=== PATIENT | male | born 1980 | race African-American/Black ===

== ENCOUNTER 2017-10-30 15:54 | Inpatient (IN) | payer OTHER ==
[2017-10-30 18:51] VITALS: BMI 19.0
--- NOTE | 2017-10-30 20:18 | HP ---
CIWA Score - CIWA Score Nausea/Vomitin Muscle Tremors: 4-Moderate,w/Arms Extend Anxiety: 4-Mod. Anxious/Guarded Agitation: 4-Moderately Restless Paroxysmal Sweats: 3 Orientation: 0-Oriented Tacttile Disturbances: 0-None Auditory Disturbances: 0-None Visual Disturbances: 0-None Headache: 0-None Present CIWA-Ar Total Score: 18 Admission ROS BHS - HPI Chief Complaint: SEEKING DETOX FOR ALCOHOLISM AND WITHDRAWAL SX'S Allergies/Adverse Reactions: Allergies Allergy/AdvReac Type Severity Reaction Status Date / Time No Known Allergies Allergy Verified 10/30/17 19:49 History of Present Illness: 36 Y.O. MALE WITH LONG HX/O ALCOHOLISM KNOWN TO THIS PROGRAM RETURNS FOR DETOX FOR ALCOHOLISM. REFERRED BY HIS OUT PATIENT PROGRAM. REPORTS LAST DETOX AT [facility] 07/2017. REPORTS LONGEST CLEAN TIME 6 MONTHS. PMHX: ALCOHOL RELATED SEIZURES,; MENTAL HEALTH ANXIETY, INSOMNIA. DENIES PAST AND PRESENT SI/HI, A/V HALLUCINATIONS. PENDING DWI LEGALS Exam Limitations: No Limitations - Ebola screening Have you traveled outside of the country in the last 21 days: No Have you had contact with anyone from an Ebola affected area: No Have you been sick,other than usual withdrawal symptoms: No Do you have a fever: No - Review of Systems Constitutional: Chills, Loss of Appetite, Night Sweats, Changes in sleep, Unintentional Wgt. Loss EENT: reports: No Symptoms Reported Respiratory: reports: No Symptoms reported Cardiac: reports: No Symptoms Reported GI: reports: Poor Appetite, Poor Fluid Intake, Abdominal cramping : reports: No Symptoms Reported Musculoskeletal: reports: No Symptoms Reported Integumentary: reports: Other (R CHEEK ABRASION S/P FALL) Neuro: reports: Seizure (R/T ETOH WITHDRAWAL) Endocrine: reports: No Symptoms Reported Hematology: reports: No Symptoms Reported Psychiatric: reports: Anxious Other Systems: Reviewed and Negative Patient History - Patient Medical History Hx Anemia: No Hx Asthma: No Hx Chronic Obstructive Pulmonary Disease (COPD): No Hx Cancer: No Hx Cardiac Disorders: No Hx Congestive Heart Failure: No Hx Hypertension: No Hx Hypercholesterolemia: No Hx Pacemaker: No HX Cerebrovascular Accident: No Hx Seizures: Yes (R/T ALCOHOL 04/2017) Hx Dementia: No Hx Diabetes: No Hx Gastrointestinal Disorders: No Hx Liver Disease: No Hx Genitourinary Disorders: No Hx Sexually Transmitted Disorders: No Hx Renal Disease (ESRD): No Hx Thyroid Disease: No Hx Human Immunodeficiency Virus (HIV): No Hx Hepatitis C: No Hx Depression: No (anxiety) Hx Suicide Attempt: No Hx Bipolar Disorder: No Hx Schizophrenia: No Other Medical History: DENIES - Patient Surgical History Past Surgical History: No Hx Neurologic Surgery: No Hx Cataract Extraction: No Hx Cardiac Surgery: No Hx Lung Surgery: No Hx Breast Surgery: No Hx Breast Biopsy: No Hx Abdominal Surgery: No Hx Appendectomy: No Hx Cholecystectomy: No Hx Genitourinary Surgery: No Hx Section: No Hx Orthopedic Surgery: No Other Surgical History: left mandible in 2012 Anesthesia Reaction: No - PPD History Previous Implant?: Yes Documented Results: Positive w/o proof Implanted On Prior R Admission?: No PPD to be Administered?: No - Smoking Cessation Smoking history: Current every day smoker Have you smoked in the past 12 months: Yes Aproximately how many cigarettes per day: 10 Cigars Per Day: 0 Hx Chewing Tobacco Use: No Initiated information on smoking cessation: Yes 'Breaking Loose' booklet given: 10/30/17 - Substance & Tx. History Hx Alcohol Use: Yes Hx Substance Use: Yes Substance Use Type: Alcohol, Cocaine, Marijuana Hx Substance Use Treatment: Yes ([facility]) - Substances Abused Alcohol Route: Oral Frequency: Daily Amount used: 1 PINT VODKA Age of first use: 17 Date of Last Use: 10/30/17 Cocaine Route: Smoking Frequency: 1-2 times per week Amount used: $40 Age of first use: 34 Date of Last Use: 10/29/17 Marijuana/Hashish Route: Smoking Frequency: Daily Amount used: 3 BLUNTS Age of first use: 17 Family Disease History - Family Disease History Family Disease History: Other: Father (RECOVERED ALCOHOLIC) Admission Physical Exam BHS - Vital Signs Vital Signs: Vital Signs - 24 hr 10/30/17 18:50 Temperature 98.6 F Pulse Rate 88 Respiratory 18 Rate Blood Pressure 122/82 - Physical General Appearance: Yes: Appropriately Dressed, Mild Distress, Thin, Tremorous, Other (RESTLESS) HEENTM: Yes: EOMI, Normocephalic, Normal Voice, TARUN, Pharynx Normal Respiratory: Yes: Chest Non-Tender, Lungs Clear, Normal Breath Sounds, No Respiratory Distress, No Accessory Muscle Use Neck: Yes: No masses,lesions,Nodules, Supple, Trachea in good position Breast: Yes: Breast Exam Deferred Cardiology: Yes: Regular Rhythm, S1, S2, Tachycardia Abdominal: Yes: Non Tender, Flat, Soft, Increased Bowel Sounds Genitourinary: Yes: Within Normal Limits Back: Yes: Normal Inspection Musculoskeletal: Yes: full range of Motion, Gait Steady Extremities: Yes: Normal Capillary Refill, Normal Range of Motion, Non-Tender, Tremors Neurological: Yes: Fully Oriented, Alert, Motor Strength 5/5 Integumentary: Yes: Normal Color, Warm, Other (HEALING ABRASION TO RIGHT SIDE OF FACE) Lymphatic: Yes: Within Normal Limits - Diagnostic (1) Alcohol dependence with uncomplicated withdrawal Current Visit: Yes Status: Chronic (2) Cocaine abuse, uncomplicated Current Visit: Yes Status: Chronic (3) Drug-induced mood disorder Current Visit: Yes Status: Suspected (4) Seizure disorder Current Visit: Yes Status: Suspected (5) Cannabis dependence Current Visit: Yes Status: Chronic (6) Nicotine dependence Current Visit: Yes Status: Chronic Qualifiers: Nicotine product type: cigarettes Substance use status: uncomplicated Qualified Code(s): F17.210 - Nicotine dependence, cigarettes, uncomplicated Cleared for Admission [facility] - Detox or Rehab [facility] Level of Care: Medically Managed Detox Regimen/Protocol: Rupaliium Hosseined for Rehab Admission: No [facility] Breath Alcohol Content Breath Alcohol Content: 0.144 Urine Drug Screen - Results Drug Screen Negative: No Urine Drug Screen Results: THC-Marijuana, VALERIO-Cocaine
[2017-10-30] MEDS ORDERED: MENTHOL/PHENOL 1 EACH UD MM PRN (20:40)
[2017-10-30] MEDS ORDERED: P-EPHED 60MG/TRIPROLIDI 2.5MG TABLET PO PRN (20:40)
[2017-10-30] MEDS ORDERED: IBUPROFEN 400 MG TABLET (FP) PO PRN (20:40)
[2017-10-30] MEDS ORDERED: MAGNESIUM CITRATE 300 ML BOTTLE PO PRN (20:40)
[2017-10-30] MEDS ORDERED: NICOTINE POLACRILEX 2 MG GUM BC PRN (20:40)
[2017-10-30] MEDS ORDERED: LOPERAMIDE HCL 2 MG CAPSULE PO PRN (20:40)
[2017-10-30] MEDS ORDERED: chlordiazePOXIDE HCL 25 MG CAPSULE PO PRN (20:40)
[2017-10-30] MEDS ORDERED: guaiFENesin/D-METHORPHAN HB 10 ML UNIT-DOSE CUPS PO PRN (20:40)
[2017-10-30] MEDS ORDERED: ACETAMINOPHEN 325 MG TABLET (FP) PO PRN (20:40)
[2017-10-30] MEDS ORDERED: MAGNESIUM HYDROX 2400MG/30ML ORAL SUSPENSION 30 ML CUP PO PRN (20:40)
[2017-10-30] MEDS ORDERED: MELATONIN 5 MG TABLETS PO PRN (22:00)
[2017-10-30] MEDS: THIAMINE HCL 100 MG TABLET (FP) PO SCH (22:38)
[2017-10-30] MEDS: TOPIRAMATE 100 MG TABLET PO SCH (22:38)
[2017-10-30] MEDS: chlordiazePOXIDE HCL 25 MG CAPSULE PO SCH (22:38)
[2017-10-30] MEDS: hydrOXYzine PAMOATE 50 MG CAPSULE (FP) PO PRN (22:41)
[2017-10-30] MEDS: MAG HYDROX/AL HYDROX/SIMETH 30 ML UNIT-DOSE CUP PO PRN (22:42)
[2017-10-31] MEDS: chlordiazePOXIDE HCL 25 MG CAPSULE PO SCH ×4 (06:11→22:15)
[2017-10-31] MEDS: MAG HYDROX/AL HYDROX/SIMETH 30 ML UNIT-DOSE CUP PO PRN ×2 (06:13→17:49)
[2017-10-31] MEDS: PRENATAL VITAMINS W/ FOLIC ACID TABLET (FP) PO SCH (10:20)
[2017-10-31] MEDS: TOPIRAMATE 100 MG TABLET PO SCH ×2 (10:20→22:15)
[2017-10-31] MEDS: NICOTINE 14 MG/24 HOURS TOPICAL PATCH TD SCH (10:20)
--- NOTE | 2017-10-31 10:36 | CONSULT ---
[facility] Psychiatric Consult - Data Date of interview: 10/31/17 Admission source: [facility] Identifying data: Readmission to [facility] for this 36 y/o [place]born male seeking detox treatment on for alcohol,cocaine and cannabis dependence.Patient is single,a father of three,domiciled,unemployed and reportedly deprived of any source of income. Substance Abuse History: Confirmed by patient in this session.Details in current [facility] report : Smoking history: Current every day smoker. Have you smoked in the past 12 months: Yes. Aproximately how many cigarettes per day: 10. Cigars Per Day: 0. Hx Chewing Tobacco Use: No. Initiated information on smoking cessation: Yes. 'Breaking Loose' booklet given: 10/30/17. - Substance & Tx. History. Hx Alcohol Use: Yes. Hx Substance Use: Yes. Substance Use Type : Alcohol, Cocaine, Marijuana. Hx Substance Use Treatment: Yes ([facility]). - Substances Abused. Alcohol. Route: Oral. Frequency: Daily. Amount used : 1 PINT VODKA. Age of first use: 17. Date of Last Use: 10/30/17. Cocaine. Route: Smoking. Frequency: 1-2 times per week. Amount used: $40. Age of first use: 34. Date of Last Use: 10/29/17. Marijuana/Hashish. Route : Smoking. Frequency: Daily. Amount used: 3 BLUNTS. Age of first use: 17 Medical History: Seizure disorder (on topamax). Psychiatric History: Diagnosed with Anxiety Disorder.No reported history of psychiatric hospitalizations.Mr Meade sees a psychiatrist at the [facility] for medication management.Prescribed remeron 30 mg/hs for chronic insomnia.Patient denies history of suicide attempts. Physical/Sexual Abuse/Trauma History: Patient denies. Additional Comment: Urine Drug Screen Results: THC-Marijuana, VALERIO-Cocaine.Noted. Mental Status Exam - Mental Status Exam Alert and Oriented to: Time, Place, Person Cognitive Function: Good Patient Appearance: Well Groomed Mood: Withdrawn, Anxious Affect: Appropriate, Mood Congruent Patient Behavior: Fatigued, Appropriate, Cooperative Speech Pattern: Clear Voice Loudness: Normal Thought Process: Intact, Goal Oriented Thought Disorder: Not Present Hallucinations: Denies Suicidal Ideation: Denies Homicidal Ideation: Denies Insight/Judgement: Poor Sleep: Poorly, Difficulty falling asleep Appetite: Good Muscle strength/Tone: Normal Gait/Station: Normal Psychiatric Findings - Problem List (Novelty 1, 2,3) (1) Alcohol dependence with uncomplicated withdrawal Current Visit: Yes Status: Acute (2) Cannabis dependence Current Visit: Yes Status: Acute (3) Cocaine abuse, uncomplicated Current Visit: Yes Status: Acute (4) Nicotine dependence Current Visit: Yes Status: Acute Qualifiers: Nicotine product type: cigarettes Substance use status: uncomplicated Qualified Code(s): F17.210 - Nicotine dependence, cigarettes, uncomplicated (5) Drug-induced mood disorder Current Visit: Yes Status: Chronic (6) Insomnia Current Visit: Yes Status: Acute - Initial Treatment Plan Initial Treatment Plan: Psychoeducation.Sleep hygiene.Detoxification.Remeron 15 mg po hs.Side effects/benefits discussed with the patient.Mr Meade agrees with this careplan.Observation.
[2017-10-31 10:43] LABS: HEMATOCRIT 39.1 % (35.4-49); HEMOGLOBIN 13.2 GM/dL (11.7-16.9); MCH 33.7 pg (25.7-33.7); MCHC 33.7 g/dl (32.0-35.9); MEAN CELL VOLUME 99.9 fl (80-96); MEAN PLT VOLUME 9.5 fl (7.5-11.1); PLATELET COUNT 215 K/MM3 (134-434); RBC 3.92 M/mm3 (4.00-5.60); WHITE BLOOD COUNT 5.5 K/mm3 (4.0-10.0)
[2017-10-31 10:52] LABS: CHLORIDE 110 mmol/L (98-107); POTASSIUM 3.7 mmol/L (3.5-5.1); SODIUM 140 mmol/L (136-145)
[2017-10-31 11:12] LABS: ALBUMIN 3.6 g/dl (3.4-5.0); ALK PHOS 65 U/L (45-117); ANION GAP 8 (8-16); BILIRUBIN,TOTAL 1.2 mg/dL (0.2-1.0); BLOOD UREA NITROGEN 4 mg/dL (7-18); CALCIUM 8.8 mg/dL (8.5-10.1); CO2 22 mmol/L (21-32); CREATININE 0.7 mg/dL (0.7-1.3); GLUCOSE,RANDOM 103 mg/dL (74-106); SGOT/AST 36 U/L (15-37); SGPT/ALT 31 U/L (12-78); TOT PROT 7.1 g/dl (6.4-8.2)
--- NOTE | 2017-10-31 13:31 | PN ---
S CIWA - CIWA Score Nausea/Vomitin-No Nausea/No Vomiting Muscle Tremors: 3 Anxiety: 4-Mod. Anxious/Guarded Agitation: 2 Paroxysmal Sweats: 3 Orientation: 0-Oriented Tacttile Disturbances: 2-Mild Itch/Numbness/Burn Auditory Disturbances: 0-None Visual Disturbances: 2-Mild Sensitivity Headache: 0-None Present CIWA-Ar Total Score: 16 BHS Progress Note (SOAP) Subjective: Tremors, Sweating, Stomach Cramping, Fatigue, Interrupted Sleep. Objective: PATIENT A & O X 3. NO ACUTE DISTRESS. 10/31/17 13:29 Vital Signs Temperature 98.1 F 10/31/17 09:17 Pulse Rate 72 10/31/17 09:17 Respiratory Rate 18 10/31/17 09:17 Blood Pressure 112/76 10/31/17 09:17 O2 Sat by Pulse Oximetry (%) Laboratory Tests 10/31/17 10/31/17 10/31/17 07:40 07:40 07:40 WBC 5.5 D RBC 3.92 L Hgb 13.2 Hct 39.1 MCV 99.9 H MCH 33.7 MCHC 33.7 RDW 15.0 D Plt Count 215 MPV 9.5 Sodium 140 Potassium 3.7 Chloride 110 H Carbon Dioxide 22 D Anion Gap 8 BUN 4 L D Creatinine 0.7 D Creat Clearance w eGFR > 60 Random Glucose 103 Calcium 8.8 Total Bilirubin 1.2 H D AST 36 D ALT 31 D Alkaline Phosphatase 65 Total Protein 7.1 Albumin 3.6 RPR Titer HIV 1&2 Antibody Screen Negative HIV P24 Antigen Negative 10/31/17 07:40 WBC RBC Hgb Hct MCV MCH MCHC RDW Plt Count MPV Sodium Potassium Chloride Carbon Dioxide Anion Gap BUN Creatinine Creat Clearance w eGFR Random Glucose Calcium Total Bilirubin AST ALT Alkaline Phosphatase Total Protein Albumin RPR Titer Nonreactive HIV 1&2 Antibody Screen HIV P24 Antigen LABS NOTED. Assessment: 10/31/17 13:29 WITHDRAWAL SYMPTOMS. Plan: CONTINUE DETOX.
--- NOTE | 2017-10-31 14:39 | EKG ---
Test Reason : Blood Pressure : / mmHG Vent. Rate : 071 BPM Atrial Rate : 071 BPM P-R Int : 140 ms QRS Dur : 088 ms QT Int : 372 ms P-R-T Axes : 066 016 063 degrees QTc Int : 404 ms NORMAL SINUS RHYTHM NORMAL ECG NO PREVIOUS ECGS AVAILABLE Confirmed by MD Eddie, Harvinder ([id number]) on 10/31/2017 2:39:13 PM Referred By: Confirmed By:Harvinder Morgan MD
[2017-10-31] MEDS: THIAMINE HCL 100 MG TABLET (FP) PO SCH (22:15)
[2017-10-31] MEDS: MIRTAZAPINE 15 MG TABLET (FP) PO SCH (22:15)
[2017-10-31] MEDS: hydrOXYzine PAMOATE 50 MG CAPSULE (FP) PO PRN (22:19)
[2017-11-01] MEDS: chlordiazePOXIDE HCL 25 MG CAPSULE PO SCH ×3 (05:47→17:41)
[2017-11-01] MEDS: MAG HYDROX/AL HYDROX/SIMETH 30 ML UNIT-DOSE CUP PO PRN ×2 (05:48→17:42)
[2017-11-01] MEDS: PRENATAL VITAMINS W/ FOLIC ACID TABLET (FP) PO SCH (10:13)
[2017-11-01] MEDS: NICOTINE 14 MG/24 HOURS TOPICAL PATCH TD SCH (10:14)
[2017-11-01] MEDS: TOPIRAMATE 100 MG TABLET PO SCH ×2 (11:05→22:15)
--- NOTE | 2017-11-01 11:41 | PN ---
S CIWA - CIWA Score Nausea/Vomitin-No Nausea/No Vomiting Muscle Tremors: 4-Moderate,w/Arms Extend Anxiety: 4-Mod. Anxious/Guarded Agitation: 4-Moderately Restless Paroxysmal Sweats: 1-Minimal Palms Moist Orientation: 0-Oriented Tacttile Disturbances: 0-None Auditory Disturbances: 0-None Visual Disturbances: 0-None Headache: 0-None Present CIWA-Ar Total Score: 13 BHS Progress Note (SOAP) Subjective: ANXIETY,SWEATS/CHILLS, STOMACH CRAMPS/ACHE, INTERMITTENT SLEEP. Objective: 11/01/17 11:39 Vital Signs Temperature 98.7 F 11/01/17 09:22 Pulse Rate 106 H 11/01/17 09:22 Respiratory Rate 20 11/01/17 09:22 Blood Pressure 119/87 11/01/17 09:22 O2 Sat by Pulse Oximetry (%) Laboratory Tests 10/31/17 10/31/17 10/31/17 07:40 07:40 07:40 WBC 5.5 D RBC 3.92 L Hgb 13.2 Hct 39.1 MCV 99.9 H MCH 33.7 MCHC 33.7 RDW 15.0 D Plt Count 215 MPV 9.5 Sodium 140 Potassium 3.7 Chloride 110 H Carbon Dioxide 22 D Anion Gap 8 BUN 4 L D Creatinine 0.7 D Creat Clearance w eGFR > 60 Random Glucose 103 Calcium 8.8 Total Bilirubin 1.2 H D AST 36 D ALT 31 D Alkaline Phosphatase 65 Total Protein 7.1 Albumin 3.6 RPR Titer HIV 1&2 Antibody Screen Negative HIV P24 Antigen Negative 10/31/17 07:40 WBC RBC Hgb Hct MCV MCH MCHC RDW Plt Count MPV Sodium Potassium Chloride Carbon Dioxide Anion Gap BUN Creatinine Creat Clearance w eGFR Random Glucose Calcium Total Bilirubin AST ALT Alkaline Phosphatase Total Protein Albumin RPR Titer Nonreactive HIV 1&2 Antibody Screen HIV P24 Antigen Assessment: 11/01/17 11:40 WITHDRAWAL SX Plan: CONTINUE DETOX INCREASE PO FLUIDS.
[2017-11-01] MEDS: chlordiazePOXIDE 5 MG CAPSULE PO SCH (22:14)
[2017-11-01] MEDS: MIRTAZAPINE 15 MG TABLET (FP) PO SCH (22:15)
[2017-11-01] MEDS: THIAMINE HCL 100 MG TABLET (FP) PO SCH (22:15)
[2017-11-02] MEDS: chlordiazePOXIDE 5 MG CAPSULE PO SCH ×3 (07:10→17:24)
[2017-11-02] MEDS: NICOTINE 14 MG/24 HOURS TOPICAL PATCH TD SCH (10:23)
[2017-11-02] MEDS: PRENATAL VITAMINS W/ FOLIC ACID TABLET (FP) PO SCH (10:23)
[2017-11-02] MEDS: TOPIRAMATE 100 MG TABLET PO SCH ×2 (12:06→22:20)
--- NOTE | 2017-11-02 15:12 | PN ---
BHS Progress Note (SOAP) Subjective: sleep disturbance shakes sweats Objective: 11/02/17 15:10 A & ox 3 Vital Signs Temperature 98.1 F 11/02/17 13:16 Pulse Rate 90 11/02/17 13:16 Respiratory Rate 20 11/02/17 13:16 Blood Pressure 105/77 11/02/17 13:16 O2 Sat by Pulse Oximetry (%) Assessment: 11/02/17 15:11 withdrawal sx Plan: continue detox For d/c tomorrow
[2017-11-02] MEDS: chlordiazePOXIDE HCL 10 MG CAPSULE PO SCH (22:18)
[2017-11-02] MEDS: THIAMINE HCL 100 MG TABLET (FP) PO SCH (22:19)
[2017-11-02] MEDS: MIRTAZAPINE 15 MG TABLET (FP) PO SCH (22:19)
[2017-11-02] MEDS: hydrOXYzine PAMOATE 50 MG CAPSULE (FP) PO PRN (22:22)
[2017-11-03] MEDS: chlordiazePOXIDE HCL 10 MG CAPSULE PO SCH ×2 (05:50→10:10)
[2017-11-03 06:18] VITALS: BP 101/51; PULSE 71; TEMP 96.8
[2017-11-03] MEDS: TOPIRAMATE 100 MG TABLET PO SCH (09:54)
[2017-11-03] MEDS: NICOTINE 14 MG/24 HOURS TOPICAL PATCH TD SCH (09:54)
[2017-11-03] MEDS: PRENATAL VITAMINS W/ FOLIC ACID TABLET (FP) PO SCH (09:54)
--- NOTE | 2017-11-03 18:46 | DS ---
[facility] Detox Discharge Summary Admission Date: 10/30/17 Discharge Date: 11/03/17 - History Present History: Alcohol Dependence, Cannabis Dependence, Cocaine Dependence Additional Comments: PATIENT GOING TO [facility] ([place], [place] FOR AFTERCARE. PATIENT WAS DISCHARGED FROM DETOX UNIT IN STABLE MEDICAL CONDITION. Pertinent Past History: Anxiety, Insomnia, Nicotine Dependence, History of Seizure. - Physical Exam Results Vital Signs: Vital Signs Temperature 96.8 F L 11/03/17 06:17 Pulse Rate 71 11/03/17 06:17 Respiratory Rate 18 11/03/17 06:17 Blood Pressure 101/51 11/03/17 06:17 O2 Sat by Pulse Oximetry (%) Pertinent Admission Physical Exam Findings: WITHDRAWAL SYMPTOMS. Laboratory Tests 10/31/17 10/31/17 10/31/17 07:40 07:40 07:40 WBC 5.5 D RBC 3.92 L Hgb 13.2 Hct 39.1 MCV 99.9 H MCH 33.7 MCHC 33.7 RDW 15.0 D Plt Count 215 MPV 9.5 Sodium 140 Potassium 3.7 Chloride 110 H Carbon Dioxide 22 D Anion Gap 8 BUN 4 L D Creatinine 0.7 D Creat Clearance w eGFR > 60 Random Glucose 103 Calcium 8.8 Total Bilirubin 1.2 H D AST 36 D ALT 31 D Alkaline Phosphatase 65 Total Protein 7.1 Albumin 3.6 RPR Titer HIV 1&2 Antibody Screen Negative HIV P24 Antigen Negative 10/31/17 07:40 WBC RBC Hgb Hct MCV MCH MCHC RDW Plt Count MPV Sodium Potassium Chloride Carbon Dioxide Anion Gap BUN Creatinine Creat Clearance w eGFR Random Glucose Calcium Total Bilirubin AST ALT Alkaline Phosphatase Total Protein Albumin RPR Titer Nonreactive HIV 1&2 Antibody Screen HIV P24 Antigen LABS NOTED. - Treatment Hospital Course: Detox Protocol Followed, Detoxed Safely, Responded well, Discharged Condition Good, Rehab Referral Accepted Patient has Accepted a Rehab Referral to: [facility] ([place] - Medication Discharge Medications: Ambulatory Orders Mirtazapine [Remeron -] 15 mg PO HS 10/30/17 Topiramate [Topamax] 100 mg PO BID 10/30/17 - Diagnosis (1) Alcohol dependence with uncomplicated withdrawal Status: Acute (2) Cannabis dependence Status: Acute (3) Cocaine abuse, uncomplicated Status: Acute (4) Nicotine dependence Status: Acute Qualifiers: Nicotine product type: cigarettes Substance use status: in withdrawal Qualified Code(s): F17.213 - Nicotine dependence, cigarettes, with withdrawal (5) Drug-induced mood disorder Status: Chronic (6) Seizure disorder Status: Suspected (7) Insomnia Status: Acute Qualifiers: Insomnia type: unspecified Qualified Code(s): G47.00 - Insomnia, unspecified - AMA Did Patient Leave Against Medical Advice: No
--- NOTE | 2017-11-03 18:51 | PN ---
S Progress Note (SOAP) Subjective: Patient denies current Detox symptoms and reports that he feels well overall. Objective: PATIENT A & O X 3, OBSERVED AMBULATING ON UNIT. NO ACUTE DISTRESS. 11/03/17 18:49 Vital Signs Temperature 96.8 F L 11/03/17 06:17 Pulse Rate 71 11/03/17 06:17 Respiratory Rate 18 11/03/17 06:17 Blood Pressure 101/51 11/03/17 06:17 O2 Sat by Pulse Oximetry (%) Laboratory Tests 10/31/17 10/31/17 10/31/17 07:40 07:40 07:40 WBC 5.5 D RBC 3.92 L Hgb 13.2 Hct 39.1 MCV 99.9 H MCH 33.7 MCHC 33.7 RDW 15.0 D Plt Count 215 MPV 9.5 Sodium 140 Potassium 3.7 Chloride 110 H Carbon Dioxide 22 D Anion Gap 8 BUN 4 L D Creatinine 0.7 D Creat Clearance w eGFR > 60 Random Glucose 103 Calcium 8.8 Total Bilirubin 1.2 H D AST 36 D ALT 31 D Alkaline Phosphatase 65 Total Protein 7.1 Albumin 3.6 RPR Titer HIV 1&2 Antibody Screen Negative HIV P24 Antigen Negative 10/31/17 07:40 WBC RBC Hgb Hct MCV MCH MCHC RDW Plt Count MPV Sodium Potassium Chloride Carbon Dioxide Anion Gap BUN Creatinine Creat Clearance w eGFR Random Glucose Calcium Total Bilirubin AST ALT Alkaline Phosphatase Total Protein Albumin RPR Titer Nonreactive HIV 1&2 Antibody Screen HIV P24 Antigen LABS NOTED. Assessment: 11/03/17 18:50 COMPLETION OF DETOX REGIMEN. Plan: PATIENT SCHEDULED FOR DISCHARGE FROM DETOX UNIT TODAY.
== END 2017-11-03 10:20 | disposition home or self-care (01) | DRG 774 ==
LOC: YASAS 15:54 → Y3N 20:16
PROVIDERS: ADMIT Internal Medicine; ATTEND Internal Medicine
PROC: HZ2ZZZZ Detoxification Services for Substance Abuse Treatment (ICD-10-PCS; principal; 2017-10-30)
DX: F10.230 Alcohol dependence with withdrawal, uncomplicated (principal); F12.20 Cannabis dependence, uncomplicated; F14.10 Cocaine abuse, uncomplicated; F17.213 Nicotine dependence, cigarettes, with withdrawal; F19.24 Other psychoactive substance dependence with psychoactive substance-induced mood disorder; F41.9 Anxiety disorder, unspecified; G40.909 Epilepsy, unspecified, not intractable, without status epilepticus; G47.00 Insomnia, unspecified; R00.0 Tachycardia, unspecified
CPT/HCPCS: 36415; 71046-TC-FY; 80053; 85027; 86593; 87389; 93005; 93010

== ENCOUNTER 2018-03-02 17:18 | Inpatient (IN) | payer OTHER ==
[2018-03-02 19:25] VITALS: BMI 19.2
--- NOTE | 2018-03-02 22:46 | HP ---
CIWA Score - CIWA Score Nausea/Vomitin-No Nausea/No Vomiting Muscle Tremors: 1-None Visible, but [place] Anxiety: 4-Mod. Anxious/Guarded Agitation: 4-Moderately Restless Paroxysmal Sweats: 3 Orientation: 0-Oriented Tacttile Disturbances: 0-None Auditory Disturbances: 0-None Visual Disturbances: 0-None Headache: 0-None Present CIWA-Ar Total Score: 12 Admission ROS BHS - HPI Chief Complaint: SEEKING DETOX FROM ALCOHOL AND C/O WITHDRAWAL SX'S Allergies/Adverse Reactions: Allergies Allergy/AdvReac Type Severity Reaction Status Date / Time No Known Allergies Allergy Verified 10/30/17 19:49 History of Present Illness: 37 Y.O. MALE WITH HX/O ALCOHOL HERE FOR DETOX. CLIENT IS KNOWN TO THIS PROGRAM. LAST HERE 10/30/2017-11/03/2017. REFERRED BY [facility].REPORTS LONGEST CLEAN TIME 2 MONTHS. DENIES SOB, C.P., AVH, PAST/PRESENT HX/O SI/HI. CLIENT REPORTS SEIZURE D/O R/T WITHDRAWALS AND LEFT KNEE PAIN PMHX: SEIZURE D/O ON TOPOMAX 100MG BID PSYCH: INSOMNIA Exam Limitations: No Limitations - Ebola screening Have you traveled outside of the country in the last 21 days: No Have you had contact with anyone from an Ebola affected area: No Have you been sick,other than usual withdrawal symptoms: No Do you have a fever: No - Review of Systems Constitutional: Chills, Loss of Appetite, Night Sweats, Changes in sleep, Unintentional Wgt. Loss EENT: reports: No Symptoms Reported Respiratory: reports: No Symptoms reported Cardiac: reports: No Symptoms Reported GI: reports: Poor Appetite, Poor Fluid Intake : reports: No Symptoms Reported Musculoskeletal: reports: Joint Pain (RIGHT KNEE PAIN) Integumentary: reports: No Symptoms Reported Neuro: reports: Seizure (LAST EPISODE 6 MONTHS AGO) Endocrine: reports: No Symptoms Reported Hematology: reports: No Symptoms Reported Psychiatric: reports: Depressed Other Systems: Reviewed and Negative Patient History - Patient Medical History Hx Anemia: No Hx Asthma: No Hx Chronic Obstructive Pulmonary Disease (COPD): No Hx Cancer: No Hx Cardiac Disorders: No Hx Congestive Heart Failure: No Hx Hypertension: No Hx Hypercholesterolemia: No Hx Pacemaker: No HX Cerebrovascular Accident: No Hx Seizures: Yes (LAST EPISODE 6 MONTHS AGO ON TOPOMAX) Hx Dementia: No Hx Diabetes: No Hx Gastrointestinal Disorders: No Hx Liver Disease: No Hx Genitourinary Disorders: No Hx Sexually Transmitted Disorders: No Hx Renal Disease (ESRD): No Hx Thyroid Disease: No Hx Human Immunodeficiency Virus (HIV): No Hx Hepatitis C: No Hx Depression: No (FEELS DEPRESSED) Hx Suicide Attempt: No Hx Bipolar Disorder: No Hx Schizophrenia: No Other Medical History: ANXIETY - Patient Surgical History Past Surgical History: No Hx Neurologic Surgery: No Hx Cataract Extraction: No Hx Cardiac Surgery: No Hx Lung Surgery: No Hx Breast Surgery: No Hx Breast Biopsy: No Hx Abdominal Surgery: No Hx Appendectomy: No Hx Cholecystectomy: No Hx Genitourinary Surgery: No Hx Section: No Hx Orthopedic Surgery: No Other Surgical History: left mandible in 2011 Anesthesia Reaction: No - PPD History Previous Implant?: Yes Documented Results: Positive w/o proof Implanted On Prior [facility] Admission?: No Results: CXR11/13 NEG PPD to be Administered?: No - Smoking Cessation Smoking history: Current every day smoker Have you smoked in the past 12 months: Yes Aproximately how many cigarettes per day: 10 Cigars Per Day: 0 Hx Chewing Tobacco Use: No Initiated information on smoking cessation: Yes 'Breaking Loose' booklet given: 03/02/18 - Substance & Tx. History Hx Alcohol Use: Yes Hx Substance Use: Yes Substance Use Type: Alcohol Hx Substance Use Treatment: Yes ([facility]) - Substances Abused VODKA Route: Oral Frequency: 3-6 times per week Amount used: 1 PINT Age of first use: 20 Date of Last Use: 03/02/18 Family Disease History - Family Disease History Family Disease History: Other: Father (RECOVERED ALCOHOLIC), Mother (htn ) Admission Physical Exam [facility] - Vital Signs Vital Signs: Vital Signs - 24 hr 03/02/18 19:23 Temperature 98.0 F Pulse Rate 122 H Respiratory 20 Rate Blood Pressure 114/91 - Physical General Appearance: Yes: Appropriately Dressed, Mild Distress, Alcohol on Breath , Thin, Tremorous (FELT), Sweating, Other (FLUSHED SKIN) HEENTM: Yes: EOMI, Normocephalic, Normal Voice, TARUN, Pharynx Normal Respiratory: Yes: Chest Non-Tender, Lungs Clear, Normal Breath Sounds, No Respiratory Distress, No Accessory Muscle Use Neck: Yes: No masses,lesions,Nodules, Supple, Trachea in good position Breast: Yes: Breast Exam Deferred Cardiology: Yes: Regular Rhythm, S1, S2, Tachycardia Abdominal: Yes: Normal Bowel Sounds, Non Tender, Flat, Soft Genitourinary: Yes: Other (NO C/O) Back: Yes: Normal Inspection Musculoskeletal: Yes: full range of Motion Extremities: Yes: Normal Capillary Refill, Normal Range of Motion, Non-Tender, Tremors (FELT) Neurological: Yes: Fully Oriented, Alert, Motor Strength 5/5, Depressed Affect Integumentary: Yes: Warm (HOT), Moist, Other (FLUSHED FACE) Lymphatic: Yes: Within Normal Limits - Diagnostic (1) At risk for dehydration due to poor fluid intake Current Visit: Yes Status: Acute (2) History of positive PPD Current Visit: Yes Status: Chronic (3) Alcohol dependence with uncomplicated withdrawal Current Visit: Yes Status: Acute (4) Insomnia Current Visit: Yes Status: Chronic Qualifiers: Insomnia type: unspecified Qualified Code(s): G47.00 - Insomnia, unspecified (5) Nicotine dependence Current Visit: Yes Status: Chronic Qualifiers: Nicotine product type: cigarettes Substance use status: in withdrawal Qualified Code(s): F17.213 - Nicotine dependence, cigarettes, with withdrawal (6) Drug-induced mood disorder Current Visit: Yes Status: Suspected (7) Seizure disorder Current Visit: Yes Status: Chronic Cleared for Admission [facility] - Detox or Rehab [facility] Level of Care: Medically Managed Detox Regimen/Protocol: Librium Claeared for Rehab Admission: No [facility] Breath Alcohol Content Breath Alcohol Content: 0.199 Urine Drug Screen - Results Drug Screen Negative: Yes
[2018-03-02] MEDS ORDERED: LOPERAMIDE HCL 2 MG CAPSULE PO PRN (22:59)
[2018-03-02] MEDS ORDERED: IBUPROFEN 400 MG TABLET (FP) PO PRN (22:59)
[2018-03-02] MEDS ORDERED: MAGNESIUM HYDROX 2400MG/30ML ORAL SUSPENSION 30 ML CUP PO PRN (22:59)
[2018-03-02] MEDS ORDERED: P-EPHED 60MG/TRIPROLIDI 2.5MG TABLET PO PRN (22:59)
[2018-03-02] MEDS ORDERED: MAG HYDROX/AL HYDROX/SIMETH 30 ML UNIT-DOSE CUP PO PRN (22:59)
[2018-03-02] MEDS ORDERED: MAGNESIUM CITRATE 300 ML BOTTLE PO PRN (22:59)
[2018-03-02] MEDS ORDERED: guaiFENesin/D-METHORPHAN HB 10 ML UNIT-DOSE CUPS PO PRN (22:59)
[2018-03-02] MEDS ORDERED: NICOTINE POLACRILEX 2 MG GUM BUC PRN (22:59)
[2018-03-02] MEDS ORDERED: ACETAMINOPHEN 325 MG TABLET (FP) PO PRN (22:59)
[2018-03-02] MEDS ORDERED: MENTHOL/PHENOL 1 EACH UD MM PRN (22:59)
[2018-03-02] MEDS ORDERED: chlordiazePOXIDE HCL 25 MG CAPSULE PO PRN (22:59)
[2018-03-03] MEDS: chlordiazePOXIDE HCL 25 MG CAPSULE PO SCH ×5 (00:25→22:25)
[2018-03-03] MEDS: hydrOXYzine PAMOATE 50 MG CAPSULE (FP) PO PRN (00:28)
[2018-03-03] MEDS: PRENATAL VITAMINS W/ FOLIC ACID TABLET (FP) PO SCH (10:11)
[2018-03-03] MEDS: NICOTINE 21 MG/24 HOURS TOPICAL PATCH TD SCH (10:12)
[2018-03-03 10:26] LABS: HEMATOCRIT 38.9 % (35.4-49); HEMOGLOBIN 12.9 GM/dL (11.7-16.9); MCH 32.7 pg (25.7-33.7); MCHC 33.1 g/dl (32.0-35.9); MEAN CELL VOLUME 98.8 fl (80-96); MEAN PLT VOLUME 8.7 fl (7.5-11.1); PLATELET COUNT 274 K/MM3 (134-434); RBC 3.94 M/mm3 (4.00-5.60); WHITE BLOOD COUNT 4.2 K/mm3 (4.0-10.0)
[2018-03-03 10:44] LABS: CHLORIDE 114 mmol/L (98-107); POTASSIUM 3.5 mmol/L (3.5-5.1); SODIUM 147 mmol/L (136-145)
[2018-03-03 10:52] LABS: ALBUMIN 3.2 g/dl (3.4-5.0); ALK PHOS 61 U/L (45-117); ANION GAP 11 MMOL/L (8-16); BILIRUBIN,TOTAL 0.2 mg/dL (0.2-1.0); BLOOD UREA NITROGEN 7 mg/dL (7-18); CALCIUM 8.6 mg/dL (8.5-10.1); CO2 22 mmol/L (21-32); CREATININE 0.7 mg/dL (0.7-1.3); GLUCOSE,RANDOM 109 mg/dL (74-106); SGOT/AST 19 U/L (15-37); SGPT/ALT 21 U/L (12-78); TOT PROT 6.8 g/dl (6.4-8.2)
--- NOTE | 2018-03-03 12:31 | EKG ---
Test Reason : Blood Pressure : / mmHG Vent. Rate : 115 BPM Atrial Rate : 115 BPM P-R Int : 144 ms QRS Dur : 084 ms QT Int : 312 ms P-R-T Axes : 065 -45 069 degrees QTc Int : 431 ms SINUS TACHYCARDIA LEFT AXIS DEVIATION ABNORMAL ECG WHEN COMPARED WITH ECG OF 30-OCT-2017 21:46, VENT. RATE HAS INCREASED BY 44 BPM Confirmed by RENARD CRYSTAL MD ([id number]) on 03/03/2018 12:30:45 PM Referred By: Confirmed By:RENARD CRYSTAL MD
--- NOTE | 2018-03-03 12:57 | PN ---
S CIWA - CIWA Score Nausea/Vomitin-No Nausea/No Vomiting Muscle Tremors: 4-Moderate,w/Arms Extend Anxiety: 4-Mod. Anxious/Guarded Agitation: 4-Moderately Restless Paroxysmal Sweats: 1-Minimal Palms Moist Orientation: 0-Oriented Tacttile Disturbances: 0-None Auditory Disturbances: 0-None Visual Disturbances: 0-None Headache: 0-None Present CIWA-Ar Total Score: 13 BHS Progress Note (SOAP) Subjective: ANXIETY,TREMORS,SWEATS, RIGHT KNEE PAIN. Objective: 03/03/18 13:09 Vital Signs 03/03/18 03/03/18 03/03/18 05:30 06:00 06:22 Temperature 96.9 F L Pulse Rate 79 76 76 Respiratory 18 18 18 Rate Blood Pressure 101/52 03/03/18 03/03/18 03/03/18 06:30 07:00 07:30 Temperature Pulse Rate 78 76 74 Respiratory 18 18 18 Rate Blood Pressure 03/03/18 03/03/18 03/03/18 08:00 08:30 09:00 Temperature Pulse Rate 72 82 98 H Respiratory 18 20 Rate Blood Pressure 03/03/18 03/03/18 03/03/18 09:03 09:30 10:00 Temperature 97.3 F L Pulse Rate 70 91 H 94 H Respiratory 18 20 20 Rate Blood Pressure 87/54 03/03/18 03/03/18 03/03/18 10:30 11:00 11:30 Temperature Pulse Rate 96 H 99 H 96 H Respiratory 20 20 20 Rate Blood Pressure 03/03/18 03/03/18 03/03/18 12:00 12:30 13:00 Temperature Pulse Rate 94 H 95 H 92 H Respiratory 20 20 20 Rate Blood Pressure Laboratory Tests 03/03/18 03/03/18 03/03/18 07:30 07:30 07:30 WBC 4.2 RBC 3.94 L Hgb 12.9 Hct 38.9 MCV 98.8 H MCH 32.7 MCHC 33.1 RDW 15.0 Plt Count 274 D MPV 8.7 Sodium 147 H Potassium 3.5 Chloride 114 H Carbon Dioxide 22 Anion Gap 11 BUN 7 Creatinine 0.7 Creat Clearance w eGFR > 60 Random Glucose 109 H Calcium 8.6 Total Bilirubin 0.2 AST 19 D ALT 21 D Alkaline Phosphatase 61 Total Protein 6.8 Albumin 3.2 L RPR Titer Nonreactive Assessment: 03/03/18 13:09 WITHDRAWAL SX Plan: CONTINUE DETOX
[2018-03-03] MEDS: TOPIRAMATE 100 MG TABLET PO SCH ×2 (13:06→22:25)
--- NOTE | 2018-03-03 15:09 | CONSULT ---
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 Substance Abuse History: Confirmed by the patient in this interview.Details in current [facility] report : Smoking history: Current every day smoker. Have you smoked in the past 12 months: Yes. Aproximately how many cigarettes per day: 10. Cigars Per Day: 0. Hx Chewing Tobacco Use: No. Initiated information on smoking cessation: Yes. 'Breaking Loose' booklet given: 03/02/18. - Substance & Tx. History. Hx Alcohol Use: Yes. Hx Substance Use: Yes. Substance Use Type : Alcohol. Hx Substance Use Treatment: Yes ([facility]). - Substances Abused. VODKA. Route: Oral. Frequency: 3-6 times per week. Amount used: 1 PINT. Age of first use: 20. Date of Last Use: 03/02/18 Medical History: Seizure disorder (on topamax). Psychiatric History: Patient denies history of psychiatric hospitalizations.Diagnosed with MDD and Anxiety Disorder.Mr Meade sees a psychiatrist at the [facility] for medication management.Prescribed zoloft 100 mg/day + mirtazapine 30 mg/hs (verified by pharmacy claims of 01/12/18 at [id number]).No reported history of suicide attempts. Physical/Sexual Abuse/Trauma History: Patient denies. Additional Comment: Drug Screen is negative. Mental Status Exam - Mental Status Exam Alert and Oriented to: Time, Place, Person Cognitive Function: Good Patient Appearance: Well Groomed Mood: Withdrawn, Anxious, Hopeful Affect: Appropriate, Normal Range Patient Behavior: Fatigued, Cooperative Speech Pattern: Clear, Appropriate Voice Loudness: Normal Thought Process: Intact, Goal Oriented Thought Disorder: Not Present Hallucinations: Denies Suicidal Ideation: Denies Homicidal Ideation: Denies Insight/Judgement: Fair Sleep: Poorly, Difficulty falling asleep Appetite: Good Muscle strength/Tone: Normal Gait/Station: Normal Psychiatric Findings - Problem List ([place] 1, 2,3) (1) Alcohol dependence with uncomplicated withdrawal Current Visit: Yes Status: Acute (2) Nicotine dependence Current Visit: Yes Status: Acute Qualifiers: Nicotine product type: cigarettes Substance use status: in withdrawal Qualified Code(s): F17.213 - Nicotine dependence, cigarettes, with withdrawal (3) Substance induced mood disorder Current Visit: Yes Status: Chronic (4) Depressive disorder Current Visit: Yes Status: Chronic (5) Insomnia Current Visit: Yes Status: Acute - Initial Treatment Plan Initial Treatment Plan: Psychoeducation.Detoxification.Will resume zoloft 50 mg po daily at patient's request.Side effects/benefits discussed with the patient.Observation.
[2018-03-03 16:21] LABS: URINE APPEARANCE SLCLOUDY; URINE BILIRUBIN NEGATIVE (<2.0 mg/dL); URINE COLOR YELLOW; URINE GLUCOSE (UA) NEGATIVE (NEGATIVE); URINE KETONE NEGATIVE (NEGATIVE); URINE LEUK ESTERASE NEGATIVE (NEGATIVE); URINE NITRITE NEGATIVE (NEGATIVE); URINE PROTEIN NEGATIVE (NEGATIVE); URINE UROBILINOGEN NEGATIVE mg/dL (0.2-1.0)
[2018-03-03] MEDS: THIAMINE HCL 100 MG TABLET (FP) PO SCH (22:25)
[2018-03-03] MEDS: MIRTAZAPINE 15 MG TABLET (FP) PO SCH (22:25)
[2018-03-03] MEDS: MELATONIN 5 MG TABLETS PO PRN (22:38)
[2018-03-04] MEDS: chlordiazePOXIDE HCL 25 MG CAPSULE PO SCH ×3 (06:18→17:41)
[2018-03-04] MEDS: NICOTINE 21 MG/24 HOURS TOPICAL PATCH TD SCH (10:13)
[2018-03-04] MEDS: TOPIRAMATE 100 MG TABLET PO SCH ×2 (10:13→22:30)
[2018-03-04] MEDS: PRENATAL VITAMINS W/ FOLIC ACID TABLET (FP) PO SCH (10:13)
[2018-03-04] MEDS: SERTRALINE HCL 50 MG TABLET (FP) PO SCH (10:13)
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
[2018-03-04] MEDS: METHYL SALICYLATE/MENTHOL OINT 30 GM TUBE TP SCH ×2 (15:19→22:32)
[2018-03-04] MEDS: chlordiazePOXIDE 5 MG CAPSULE PO SCH (22:29)
[2018-03-04] MEDS: THIAMINE HCL 100 MG TABLET (FP) PO SCH (22:30)
[2018-03-04] MEDS: MIRTAZAPINE 15 MG TABLET (FP) PO SCH (22:30)
[2018-03-04] MEDS: MELATONIN 5 MG TABLETS PO PRN (22:36)
[2018-03-05] MEDS: chlordiazePOXIDE 5 MG CAPSULE PO SCH ×3 (06:40→17:27)
[2018-03-05] MEDS: PRENATAL VITAMINS W/ FOLIC ACID TABLET (FP) PO SCH (11:29)
[2018-03-05] MEDS: SERTRALINE HCL 50 MG TABLET (FP) PO SCH (11:30)
[2018-03-05] MEDS: TOPIRAMATE 100 MG TABLET PO SCH ×2 (11:30→22:25)
[2018-03-05] MEDS: NICOTINE 21 MG/24 HOURS TOPICAL PATCH TD SCH (11:31)
[2018-03-05] MEDS: METHYL SALICYLATE/MENTHOL OINT 30 GM TUBE TP SCH ×2 (11:31→22:26)
--- NOTE | 2018-03-05 15:19 | PN ---
BHS Progress Note (SOAP) Subjective: SLIGHT ANXIETY,. FATIGUE. Objective: 03/05/18 15:19 Vital Signs 03/05/18 03/05/18 09:07 13:47 Temperature 95.9 F L 96.1 F L Pulse Rate 68 65 Respiratory 18 16 Rate Blood Pressure 112/73 112/75 Laboratory Tests 03/03/18 03/03/18 03/03/18 07:30 07:30 07:30 WBC 4.2 RBC 3.94 L Hgb 12.9 Hct 38.9 MCV 98.8 H MCH 32.7 MCHC 33.1 RDW 15.0 Plt Count 274 D MPV 8.7 Sodium 147 H Potassium 3.5 Chloride 114 H Carbon Dioxide 22 Anion Gap 11 BUN 7 Creatinine 0.7 Creat Clearance w eGFR > 60 Random Glucose 109 H Calcium 8.6 Total Bilirubin 0.2 AST 19 D ALT 21 D Alkaline Phosphatase 61 Total Protein 6.8 Albumin 3.2 L Urine Color Urine Appearance Urine pH Ur Specific [place] Urine Protein Urine Glucose (UA) Urine Ketones Urine Blood Urine Nitrite Urine Bilirubin Urine Urobilinogen Ur Leukocyte Esterase RPR Titer Nonreactive 03/03/18 11:00 WBC RBC Hgb Hct MCV MCH MCHC RDW Plt Count MPV Sodium Potassium Chloride Carbon Dioxide Anion Gap BUN Creatinine Creat Clearance w eGFR Random Glucose Calcium Total Bilirubin AST ALT Alkaline Phosphatase Total Protein Albumin Urine Color Yellow Urine Appearance Slcloudy Urine pH 5.0 Ur Specific [place] 1.023 Urine Protein Negative Urine Glucose (UA) Negative Urine Ketones Negative Urine Blood Negative Urine Nitrite Negative Urine Bilirubin Negative Urine Urobilinogen Negative Ur Leukocyte Esterase Negative RPR Titer Assessment: 03/05/18 15:19 WITHDRAWAL SX Plan: CONTINUE DETOX
[2018-03-05] MEDS: MIRTAZAPINE 15 MG TABLET (FP) PO SCH (22:25)
[2018-03-05] MEDS: THIAMINE HCL 100 MG TABLET (FP) PO SCH (22:26)
[2018-03-05] MEDS: chlordiazePOXIDE HCL 10 MG CAPSULE PO SCH (22:26)
[2018-03-05] MEDS: MELATONIN 5 MG TABLETS PO PRN (22:27)
[2018-03-06] MEDS: chlordiazePOXIDE HCL 10 MG CAPSULE PO SCH ×2 (06:39→11:47)
[2018-03-06] MEDS: NICOTINE 21 MG/24 HOURS TOPICAL PATCH TD SCH (10:12)
[2018-03-06] MEDS: PRENATAL VITAMINS W/ FOLIC ACID TABLET (FP) PO SCH (10:13)
[2018-03-06] MEDS: SERTRALINE HCL 50 MG TABLET (FP) PO SCH (10:13)
[2018-03-06] MEDS: TOPIRAMATE 100 MG TABLET PO SCH (10:13)
[2018-03-06] MEDS: hydrOXYzine PAMOATE 50 MG CAPSULE (FP) PO PRN (10:16)
[2018-03-06] MEDS: METHYL SALICYLATE/MENTHOL OINT 30 GM TUBE TP SCH (11:12)
--- NOTE | 2018-03-06 12:07 | PN ---
BHS Progress Note (SOAP) Subjective: DETOX COMPLETED. ALERT O X 3. NAD. PT REFERRED TO [facility] TODAY. Objective: 03/06/18 12:06 Vital Signs 03/06/18 03/06/18 06:56 09:30 Temperature 98.6 F 97.7 F Pulse Rate 52 L 61 Respiratory 18 18 Rate Blood Pressure 100/49 102/62 Laboratory Tests 03/03/18 03/03/18 03/03/18 07:30 07:30 07:30 WBC 4.2 RBC 3.94 L Hgb 12.9 Hct 38.9 MCV 98.8 H MCH 32.7 MCHC 33.1 RDW 15.0 Plt Count 274 D MPV 8.7 Sodium 147 H Potassium 3.5 Chloride 114 H Carbon Dioxide 22 Anion Gap 11 BUN 7 Creatinine 0.7 Creat Clearance w eGFR > 60 Random Glucose 109 H Calcium 8.6 Total Bilirubin 0.2 AST 19 D ALT 21 D Alkaline Phosphatase 61 Total Protein 6.8 Albumin 3.2 L Urine Color Urine Appearance Urine pH Ur Specific [place] Urine Protein Urine Glucose (UA) Urine Ketones Urine Blood Urine Nitrite Urine Bilirubin Urine Urobilinogen Ur Leukocyte Esterase RPR Titer Nonreactive 03/03/18 11:00 WBC RBC Hgb Hct MCV MCH MCHC RDW Plt Count MPV Sodium Potassium Chloride Carbon Dioxide Anion Gap BUN Creatinine Creat Clearance w eGFR Random Glucose Calcium Total Bilirubin AST ALT Alkaline Phosphatase Total Protein Albumin Urine Color Yellow Urine Appearance Slcloudy Urine pH 5.0 Ur Specific [place] 1.023 Urine Protein Negative Urine Glucose (UA) Negative Urine Ketones Negative Urine Blood Negative Urine Nitrite Negative Urine Bilirubin Negative Urine Urobilinogen Negative Ur Leukocyte Esterase Negative RPR Titer Assessment: 03/06/18 12:07 MEDICALLY STABLE Plan: D/C PT TODAY TO REHAB
--- NOTE | 2018-03-06 12:08 | DS ---
[facility] Detox Discharge Summary Admission Date: 03/02/18 Discharge Date: 03/06/18 - History Present History: Alcohol Dependence Additional Comments: DETOX COMPLETED. Pertinent Past History: SEE BELOW - Physical Exam Results Vital Signs: Vital Signs Temperature 97.7 F 03/06/18 09:30 Pulse Rate 61 03/06/18 09:30 Respiratory Rate 18 03/06/18 09:30 Blood Pressure 102/62 03/06/18 09:30 O2 Sat by Pulse Oximetry (%) Pertinent Admission Physical Exam Findings: WITHDRAWAL SX Laboratory Tests 03/03/18 03/03/18 03/03/18 07:30 07:30 07:30 WBC 4.2 RBC 3.94 L Hgb 12.9 Hct 38.9 MCV 98.8 H MCH 32.7 MCHC 33.1 RDW 15.0 Plt Count 274 D MPV 8.7 Sodium 147 H Potassium 3.5 Chloride 114 H Carbon Dioxide 22 Anion Gap 11 BUN 7 Creatinine 0.7 Creat Clearance w eGFR > 60 Random Glucose 109 H Calcium 8.6 Total Bilirubin 0.2 AST 19 D ALT 21 D Alkaline Phosphatase 61 Total Protein 6.8 Albumin 3.2 L Urine Color Urine Appearance Urine pH Ur Specific [place] Urine Protein Urine Glucose (UA) Urine Ketones Urine Blood Urine Nitrite Urine Bilirubin Urine Urobilinogen Ur Leukocyte Esterase RPR Titer Nonreactive 03/03/18 11:00 WBC RBC Hgb Hct MCV MCH MCHC RDW Plt Count MPV Sodium Potassium Chloride Carbon Dioxide Anion Gap BUN Creatinine Creat Clearance w eGFR Random Glucose Calcium Total Bilirubin AST ALT Alkaline Phosphatase Total Protein Albumin Urine Color Yellow Urine Appearance Slcloudy Urine pH 5.0 Ur Specific [place] 1.023 Urine Protein Negative Urine Glucose (UA) Negative Urine Ketones Negative Urine Blood Negative Urine Nitrite Negative Urine Bilirubin Negative Urine Urobilinogen Negative Ur Leukocyte Esterase Negative RPR Titer - Treatment Hospital Course: Detox Protocol Followed, Detoxed Safely, Responded well, Discharged Condition Good, Rehab Referral Accepted Patient has Accepted a Rehab Referral to: [facility] - Medication Discharge Medications: Ambulatory Orders Mirtazapine [Remeron -] 15 mg PO HS 10/30/17 Topiramate [Topamax] 100 mg PO BID 10/30/17 Mirtazapine [Remeron -] 15 mg PO HS #30 tablet 03/03/18 Sertraline HCl [Zoloft] 100 mg PO DAILY #30 tablet 03/03/18 - Diagnosis (1) Alcohol dependence with uncomplicated withdrawal Current Visit: Yes Status: Acute (2) At risk for dehydration due to poor fluid intake Current Visit: Yes Status: Acute (3) Nicotine dependence Current Visit: Yes Status: Acute Qualifiers: Nicotine product type: cigarettes Substance use status: in withdrawal Qualified Code(s): F17.213 - Nicotine dependence, cigarettes, with withdrawal (4) Seizure disorder Current Visit: Yes Status: Chronic (5) Knee pain, right Current Visit: Yes Status: Acute - AMA Did Patient Leave Against Medical Advice: No
[2018-03-06 13:13] VITALS: BP 102/73; PULSE 57; TEMP 96
== END 2018-03-06 15:09 | disposition other institution (70) | DRG 775 ==
LOC: YASAS 17:18 → Y3N 23:40
PROC: HZ2ZZZZ Detoxification Services for Substance Abuse Treatment (ICD-10-PCS; principal; 2018-03-02)
DX: F10.230 Alcohol dependence with withdrawal, uncomplicated (principal); F17.213 Nicotine dependence, cigarettes, with withdrawal; F19.24 Other psychoactive substance dependence with psychoactive substance-induced mood disorder; F41.9 Anxiety disorder, unspecified; F33.9 Major depressive disorder, recurrent, unspecified; G47.00 Insomnia, unspecified; G40.909 Epilepsy, unspecified, not intractable, without status epilepticus; R76.11 Nonspecific reaction to tuberculin skin test without active tuberculosis; M25.561 Pain in right knee; Z91.89 Other specified personal risk factors, not elsewhere classified
CPT/HCPCS: 36415; 80053; 81003; 85027; 86593; 93005; 93010